=== PATIENT | female | born 1985 | race Caucasian/White ===

== ENCOUNTER 2016-11-20 05:07 | Emergency (ER) | payer OTHER ==
[2016-11-20 06:06] LABS: BASOPHIL 0.1 % (0-2); EOSINOPHIL 0.2 % (0-5); HCT 43.4 % (37.0-47.0); HGB 15.1 g/dl (12.5-16.0); LYMPHOCYTE 9.9 % (15-48); MCH 32.1 pg (25.0-31.0); MCHC 34.8 g/dL (32.0-36.0); MCV 92.3 fL (78.0-100.0); MONOCYTE 7.2 % (0-12); MPV 11.2 fL (6.0-9.5); NEUTROPHIL 82.6 % (41-80); PLT 230 K/uL (150-400); RDW 13.3 % (11.5-14.0); WBC 10.6 K/uL (4.0-10.5)
[2016-11-20 06:08] LABS: BILIRUBIN NEGATIVE (NEGATIVE); BLOOD NEGATIVE Ery/uL (NEGATIVE); CLARITY CLEAR (CLEAR); COLOR YELLOW (YELLOW); GLUCOSE (U) NORMAL (NORMAL); KETONE (U) TRACE mg/dL (NEGATIVE); LEUKOCYTES TRACE Leu/uL (NEGATIVE); NITRITE NEGATIVE (NEGATIVE); PROTEIN TRACE (LOW) mg/dL (NEGATIVE); SPECIFIC GRAVITY 1.025 (1.001-1.030); UROBILINOGEN 0.2 mg/dL (0.2-1.0); pH 5.5 (5.0-9.0)
[2016-11-20 06:10] LABS: SQUAMOUS EPITHELIAL CELLS >50; URINARY RBC RARE; URINARY WBC RARE
[2016-11-20 06:18] LABS: AMPHETAMINES POSITIVE (NEGATIVE); BARBITURATES NEGATIVE (NEGATIVE); BENZODIAZEPINES NEGATIVE (NEGATIVE); COCAINE NEGATIVE (NEGATIVE); MARIJUANA (THC) POSITIVE (NEGATIVE); METHADONE NEGATIVE (NEGATIVE); TRICYCLIC ANTIDEPRESSANT NEGATIVE (NEGATIVE)
[2016-11-20 06:28] LABS: CREATININE 0.6 mg/dL (0.5-1.0)
[2016-11-20 06:29] LABS: POTASSIUM 4.3 mmol/L (3.5-5.1)
== END 2016-11-20 07:22 | disposition home or self-care (01) ==
LOC: FER 05:07
PROVIDERS: Emergency Medicine
DX: G43.909 Migraine, unspecified, not intractable, without status migrainosus (principal); F17.210 Nicotine dependence, cigarettes, uncomplicated
CPT/HCPCS: 36415; 80048; 80305; 81001; 85025; J1885; J2405

== ENCOUNTER 2021-04-23 21:00 | Emergency (ER) | payer OTHER ==
[~2021-04-23 21:00] MED LIST: BACTRIM DS TAB1 EACH PO; DEXILANT30 MG PO; IBUPROFEN800 MG PO; NORCO 5-325 TA1 EACH PO; ONDANSETRON ODT4 MG SL; PREDNISONE 20MG20 MG PO; XANAX0.5 M1 PO
[2021-04-23 22:33] LABS: BASOPHIL 0.8 % (0-2); EOSINOPHIL 2.4 % (0-5); HCT 44.3 % (37.0-47.0); HGB 15.3 g/dl (12.5-16.0); LYMPHOCYTE 29.5 % (15-48); MCH 30.5 pg (25.0-31.0); MCHC 34.5 g/dL (32.0-36.0); MCV 88.2 fL (78.0-100.0); MONOCYTE 9.7 % (0-12); MPV 12.3 fL (6.0-9.5); NEUTROPHIL 57.2 % (41-80); NRBC 0; PLT 207 K/uL (150-400); RBC 5.02 M/uL (4.20-5.40); RDW 12.3 % (11.5-14.0); WBC 7.5 K/uL (4.0-10.5)
[2021-04-23 22:53] LABS: ALBUMIN 3.1 g/dL (3.4-5.0); BILIRUBIN - TOTAL 0.5 mg/dL (0.2-1.0); BUN/CREAT RATIO (CALC) 21.2 RATIO; CREATININE 0.66 mg/dL (0.51-0.95); GLOBULIN (CALCULATION) 3.7 g/dL; POTASSIUM 4.1 mmol/L (3.5-5.1); TOTAL PROTEIN 6.8 g/dL (6.4-8.2)
[2021-04-23 23:54] LABS: BILIRUBIN NEGATIVE (NEGATIVE); BLOOD 1+ Ery/uL (NEGATIVE); CLARITY CLEAR (CLEAR); COLOR YELLOW (YELLOW); GLUCOSE (U) NORMAL (NORMAL); LEUKOCYTES NEGATIVE Leu/uL (NEGATIVE); NITRITE NEGATIVE (NEGATIVE); PROTEIN NEGATIVE (NEGATIVE); UROBILINOGEN 0.2 mg/dL (0.2-1.0)
[2021-04-23 23:56] LABS: AMPHETAMINES NEGATIVE (NEGATIVE); BARBITURATES NEGATIVE (NEGATIVE); ECSTASY (MDMA) NEGATIVE (NEGATIVE); MARIJUANA (THC) NEGATIVE (NEGATIVE); METHADONE NEGATIVE (NEGATIVE); OPIATES NEGATIVE (NEGATIVE); OXYCODONE NEGATIVE (NEGATIVE)
[2021-04-23 23:59] LABS: BACTERIA TRACE; URINARY WBC RARE
[2021-04-24] LABS: URINARY RBC RARE
[2021-04-24 00:21] LABS: CORONAVIRUS 2019 SARS-COV-2 NEGATIVE (NEGATIVE); INFLUENZA A NAA NEGATIVE (NEGATIVE)
[2021-04-24] MEDS ORDERED: FLEXERIL5 MG PO (01:23)
== END 2021-04-24 03:05 | disposition home or self-care (01) ==
LOC: FER 21:00
PROVIDERS: Emergency Medicine; Internal Medicine
DX: S29.011A Strain of muscle and tendon of front wall of thorax, initial encounter (principal); I10 Essential (primary) hypertension; F17.200 Nicotine dependence, unspecified, uncomplicated; Z79.899 Other long term (current) drug therapy; Z20.822 Contact with and (suspected) exposure to COVID-19
CPT/HCPCS: 36415; 71045; 80053; 80305; 81001; 83690; 84145; 84443; 84484; 85025; 93005; U0002